=== PATIENT | male | born 1985 | race Caucasian/White ===

== ENCOUNTER 2017-03-02 15:47 | Emergency (ER) | payer OTHER ==
[2017-03-02] MEDS ORDERED: Ketorolac Tromethamine 60 MG/2 ML VIAL ONE (16:07)
== END 2017-03-02 16:25 | disposition home or self-care (01) ==
LOC: NAV ERS 15:47
DX: S46.911A Strain of unspecified muscle, fascia and tendon at shoulder and upper arm level, right arm, initial encounter (principal); M77.9 Enthesopathy, unspecified; F41.9 Anxiety disorder, unspecified; F32.9 Major depressive disorder, single episode, unspecified; F43.10 Post-traumatic stress disorder, unspecified; X58.XXXA Exposure to other specified factors, initial encounter; Y93.43 Activity, gymnastics; Z79.899 Other long term (current) drug therapy
CPT/HCPCS: 96372; J1885